=== PATIENT | male | born 1975 | race Asian ===

== ENCOUNTER 2017-02-19 16:22 | Emergency (ER) | payer BC ==
[~2017-02-19] VITALS: Ht 165.1 cm; Wt 70.0 kg
[2017-02-19 16:26] VITALS: BP 138/96; PULSE 126; RESP 20; TEMP 97.5; O2SAT 97
[2017-02-19] MEDS ORDERED: PRED20 PO (16:55)
[2017-02-19 16:56] VITALS: PULSE 98
[2017-02-19] MEDS ORDERED: ROBA500T PO (16:56)
[2017-02-19] MEDS ORDERED: IBUP800T23 PO (16:56)
--- NOTE | 2017-02-19 16:56 | PD ---
HPI Chief Complaint: Injury Time Seen by Provider: 16:53 Travel History International Travel<30 days: No Contact w/Intl Traveler<30days: No Traveled to known affect area: No History of Present Illness HPI 41-year-old male presents to emergency Department with complaint of right-sided low back pain with radiation down his right leg 4 weeks. Saw his primary care provider yesterday and was given 2 injections and a prescription for prednisone. Had relief for about 5-6 hours yesterday was again worsening today. Denies encopresis, incontinence, saddle anesthesias. Denies IV drug use or cancer. Denies fever, vomiting, abdominal pain. Denies change in urine or stool. Reports occasional paresthesias to right lower extremity. Denies loss of sensation, decreased range of motion, decreased strength to bilateral lower extremities. Reports being ambulatory. Has no other medical complaints. No other modifying factors or associated signs and symptoms. PFSH Social History Tobacco Use: No Allergies-Medications Reported Meds & Prescriptions Reported Meds & Active Scripts Active Ibuprofen 800 Mg Tab 800 Mg PO Q6HR PRN Robaxin (Methocarbamol) 500 Mg Tab 500 Mg PO QID PRN Reported Prednisone 20 Mg Tab 20 Mg PO DIRECTED 40 MG twice a day x 3 days, then 20 MG daily x 3 days, then 10 MG daily x 3 days Review of Systems Except as stated in HPI: all other systems reviewed are Neg Physical Exam Narrative GENERAL: Well-nourished, well-developed male patient, in no acute distress SKIN: Warm and dry. HEAD: Atraumatic. Normocephalic. EYES: Pupils equal and round. No scleral icterus. No injection or drainage. ENT: Mucosa pink and moist. Airway patent. NECK: Trachea midline. CARDIOVASCULAR: Regular rate. RESPIRATORY: No accessory muscle use. GASTROINTESTINAL: Round. MUSCULOSKELETAL: Bilateral lower extremities supple and non-tense with 2+ pedal pulses and sensory intact; with full range of motion and 5/5 strength. 2 + DTRs. Active dorsiflexion and extension of bilateral feet. Bilateral straight leg raise is negative for low back pain. Ambulatory in room with normal gait. Sitting up in bed at 90. No obvious deformities. No clubbing. No cyanosis. No edema. BACK: No midline point tenderness on palpation of the lumbar spine. Tenderness on palpation of right iliosacral and paraspinal lumbar area. No obvious deformities. NEUROLOGICAL: Awake and alert. Oriented 3. No obvious cranial nerve deficits. Motor grossly within normal limits. Normal speech. Moves all extremities. 5/5 strength to all extremities. Sensory intact. PSYCHIATRIC: Appropriate mood and affect; insight and judgment normal. Data Data Last Documented VS Vital Signs Date Time Temp Pulse Resp B/P Pulse Ox O2 Delivery O2 Flow Rate FiO2 02/19/17 16:56 98 02/19/17 16:26 97.5 20 138/96 97 Room Air [facility] Medical Decision Making Medical Screen Exam Complete: Yes Emergency Medical Condition: Yes Medical Record Reviewed: Yes Differential Diagnosis Low back pain, low back strain, sciatica Narrative Course 41-year-old male physical examination consistent with right-sided low back pain and sciatica. Denies encopresis, incontinence, saddle anesthesias. Patient is ambulatory in the room with a normal gait. No midline point tenderness on palpation of the lumbar spine. Patient is afebrile and nontoxic appearing. He denies fever, vomiting. Denies IV drug use or cancer. Heart rate recheck approximately 90-100 bpm on physical exam. Patient was seen by primary care provider yesterday and was given 2 injections and a prescription for prednisone. Ibuprofen and Robaxin prescribed for home. Patient verbalizes understanding and agreement with treatment plan. Patient is medically cleared and stable for discharge. Discussed reasons to return to the emergency department. Instructed patient to follow up with primary care provider. Patient agrees with treatment plan. The patients vital signs are stable and the patient is stable for outpatient follow-up and treatment. Patient discharged home, stable and in no acute distress. Diagnosis Primary Impression: Right-sided low back pain with sciatica Qualified Code: M54.41 - Right-sided low back pain with right-sided sciatica, unspecified chronicity Referrals: Primary Care Physician Patient Instructions: Acute Low Back Pain (ED), General Instructions, Lower Back Exercises (ED), Sciatica (ED) Additional Instructions: Tylenol or ibuprofen as directed and as needed for pain Robaxin as prescribed and as needed for muscle spasms Heating pad and/or ice to affected area to reduce pain Avoid aggravating activities; increase activity as tolerated Follow-up with primary care provider Return to emergency department immediately with worsening of symptoms Med/Other Pt SpecificInfo: Prescription(s) given Scripts Ibuprofen 800 Mg Dot912 Mg PO Q6HR PRN (PAIN) #30 TAB Ref 0 Prov:Gabby Bowen 02/19/17 Methocarbamol (Robaxin)500 Mg Jud725 Mg PO QID PRN (MUSCLE SPASM) #30 TAB Ref 0 Prov:Gabby Bowen 02/19/17 Disposition: 01 DISCHARGE HOME Condition: Stable Gabby Bowen February 19, 2017 16:56
== END 2017-02-19 17:27 | disposition home or self-care (01) ==
LOC: NEPK 16:22
DX: M54.41 Lumbago with sciatica, right side (principal)
CPT/HCPCS: 99282